=== PATIENT | female | born 1955 | race Caucasian/White ===

== ENCOUNTER 2018-07-19 03:16 | Emergency (ER) | payer SELFPAY ==
[~2018-07-19] VITALS: Ht 160 cm; Wt 50.0 kg
[2018-07-19] MEDS ORDERED: MORPHINE SULFATE 4 MG/ML CPJ (NOT FOR IM USE) IV STA (03:41)
[2018-07-19] MEDS ORDERED: ONDANSETRON HCL 4MG/2ML INJ IV STA (03:41)
[2018-07-19 04:44] LABS: BASOPHILS % 0.4 % (0.0-2.0); EOSINOPHILS % 1.4 % (0.0-5.0); HEMATOCRIT. 39.7 % (36.0-48.0); HEMOGLOBIN. 13.1 g/dL (12.0-16.0); LYMPHOCYTES % 8.2 % (20.0-50.0); MEAN CORPUSCULAR HEMOGLOBIN 26.7 pg (28.0-32.0); MEAN CORPUSCULAR VOLUME 81.2 fL (81.0-99.0); MEAN PLATELET VOLUME 8.9 fl (7.4-10.4); MONOCYTES % 3.9 % (2.0-8.0); NEUTROPHILS % 86.1 % (40.0-76.0); PLATELET 289 x1000/uL (130-400); RED BLOOD CELL COUNT 4.89 mill/uL (4.2-5.4); RED CELL DISTRIBUTION WIDTH 16.9 % (11.6-14.6)
[2018-07-19 04:53] LABS: CHLORIDE 100 mEq/L (98-107)
[2018-07-19] MEDS ORDERED: IOHEXOL-300 100 ML BOTTLE ONE (06:43)
[2018-07-19] MEDS ORDERED: SODIUM CHLORIDE 0.9% 1,000 ML IV ONE (07:15)
[2018-07-19 12:30] VITALS: BP 130/61
== END 2018-07-19 13:00 | disposition home or self-care (01) ==
LOC: ER 03:16
DX: R10.31 Right lower quadrant pain (principal); N17.9 Acute kidney failure, unspecified; M19.90 Unspecified osteoarthritis, unspecified site; Z93.3 Colostomy status; Z85.038 Personal history of other malignant neoplasm of large intestine
CPT/HCPCS: 36415; 74177; 80053; 83690; 85025; 96374; 96375; 99284; J2270; J2405; Q9967

== ENCOUNTER 2018-08-16 06:30 | Inpatient (IN) | payer SELFPAY ==
[~2018-08-16] VITALS: Ht 157.5 cm; Wt 38.6 kg
[2018-08-16] MEDS ORDERED: ONDANSETRON HCL 4MG/2ML INJ IV STA (08:01)
[2018-08-16] MEDS ORDERED: MORPHINE SULFATE 4 MG/ML CPJ (NOT FOR IM USE) IV STA (08:01)
[2018-08-16 08:12] LABS: CHLORIDE 65 mEq/L (98-107); HEMATOCRIT. 40.1 % (36.0-48.0); HEMOGLOBIN. 13.4 g/dL (12.0-16.0); MEAN CORPUSCULAR HEMOGLOBIN 25.4 pg (28.0-32.0); MEAN PLATELET VOLUME 8.2 fl (7.4-10.4); PLATELET 342 x1000/uL (130-400); RED BLOOD CELL COUNT 5.28 mill/uL (4.2-5.4)
[2018-08-16 08:15] LABS: PROTHROMBIN TIME 9.9 sec (9.1-11.1)
[2018-08-16 08:31] LABS: PLATELET ESTIMATE NORMAL
[2018-08-16] MEDS ORDERED: SODIUM CHLORIDE 0.9% 1,000 ML IV ONE (08:57)
[2018-08-16] MEDS ORDERED: KETOROLAC 30MG/ML VIAL IV ONE (09:30)
[2018-08-16] MEDS ORDERED: POTASSIUM CHLORIDE 20MEQ TABLET SR PO ONE (09:30)
[2018-08-16] MEDS ORDERED: DIPHENHYDRAMINE 50MG/ML VIAL IV PRN (15:30)
[2018-08-16] MEDS: DEXT 5%/0.9% NACL KCL 20MEQ/L 1,000 ML IV SCH (16:57)
[2018-08-16] MEDS ORDERED: HYDROMORPHONE HCL/PF 2MG/ML CPJ IV PRN (17:15)
[2018-08-16] MEDS: HYDROMORPHONE HCL/PF 2MG/ML CPJ IV PRN (18:32)
[2018-08-16] MEDS: ONDANSETRON HCL 4MG/2ML INJ IV PRN (20:10)
[2018-08-16 20:27] VITALS: BP 117/83
[2018-08-16] MEDS: LORAZEPAM 2MG/ML CPJ IV PRN (20:52)
[2018-08-16 22:00] VITALS: BP 93/60
[2018-08-16 22:13] VITALS: BP 117/85
[2018-08-17] VITALS (12 sets, daily range): BP systolic 94–130; BP diastolic 50–94
[2018-08-17] MEDS: ONDANSETRON HCL 4MG/2ML INJ IV PRN (00:57)
[2018-08-17] MEDS: HYDROMORPHONE HCL/PF 2MG/ML CPJ IV PRN ×3 (00:58→23:32)
[2018-08-17] MEDS: DEXT 5%/0.9% NACL KCL 20MEQ/L 1,000 ML IV SCH ×2 (02:25→20:55)
[2018-08-17] MEDS: PANTOPRAZOLE SODIUM 40 MG/VIAL IV SCH (08:42)
[2018-08-17 10:35] LABS: HEMATOCRIT. 39.5 % (36.0-48.0); HEMOGLOBIN. 12.6 g/dL (12.0-16.0); MEAN CORPUSCULAR HEMOGLOBIN 25.3 pg (28.0-32.0); MEAN CORPUSCULAR VOLUME 79.3 fL (81.0-99.0); MEAN PLATELET VOLUME 8.3 fl (7.4-10.4); PLATELET 266 x1000/uL (130-400); RED BLOOD CELL COUNT 4.98 mill/uL (4.2-5.4); RED CELL DISTRIBUTION WIDTH 16.2 % (11.6-14.6)
[2018-08-17] MEDS ORDERED: POTASSIUM CHLORIDE INJ 40 MEQ in DEXT 5% WATER 250 ML IV NR (13:00)
[2018-08-17] MEDS ORDERED: DIATR MEGLU/DIATRIZOATE SOLN 30ML PO SCH (13:30)
[2018-08-17 13:57] LABS: PHOSPHORUS 3.8 mg/dL (2.5-4.9)
[2018-08-17 17:40] LABS: PHOSPHORUS 3.7 mg/dL (2.5-4.9)
[2018-08-18] VITALS (26 sets, daily range): BP systolic 82–142; BP diastolic 53–91
[2018-08-18] MEDS: DEXT 5%/0.9% NACL KCL 20MEQ/L 1,000 ML IV SCH (04:36)
[2018-08-18 07:28] LABS: HEMATOCRIT. 34.6 % (36.0-48.0); MEAN CORPUSCULAR HEMOGLOBIN 25.1 pg (28.0-32.0); MEAN CORPUSCULAR VOLUME 78.8 fL (81.0-99.0); MEAN PLATELET VOLUME 8.7 fl (7.4-10.4); PLATELET 235 x1000/uL (130-400); RED BLOOD CELL COUNT 4.39 mill/uL (4.2-5.4); RED CELL DISTRIBUTION WIDTH 16.2 % (11.6-14.6)
[2018-08-18] MEDS ORDERED: ONDANSETRON HCL 4MG/2ML INJ IV PRN ×2 (07:45→11:15)
[2018-08-18] MEDS ORDERED: ACETAMINOPHEN 650MG SUPP PR PRN (07:45)
[2018-08-18] MEDS ORDERED: LEVOFLOXACIN 500MG PREMIX 100 ML IV SCH (07:45)
[2018-08-18] MEDS ORDERED: FENTANYL CITRATE/PF 50MCG/ML 2ML VIAL ONE ×2 (07:47→08:18)
[2018-08-18] MEDS ORDERED: NEOSTIGMINE METHYLSULFATE 1MG/ML 10 ML VIAL ONE (07:48)
[2018-08-18] MEDS ORDERED: GLYCOPYRROLATE 0.2 MG/ML 2ML VIAL ONE (07:48)
[2018-08-18] MEDS ORDERED: ROCURONIUM BROMIDE 10MG/ML VIAL 5ML IV ONE (07:48)
[2018-08-18] MEDS ORDERED: MIDAZOLAM HCL 2 MG/2 ML VIAL ONE (07:48)
[2018-08-18] MEDS ORDERED: PROPOFOL 200MG/20ML VIAL IV ONE ×2 (07:48→10:55)
[2018-08-18] MEDS ORDERED: LIDOCAINE HCL/PF 1% 10 MG/ML 5ML VIAL ONE (07:49)
[2018-08-18] MEDS ORDERED: CEFAZOLIN SODIUM 1000MG/VIAL ONE (07:49)
[2018-08-18] MEDS ORDERED: SODIUM CHLORIDE 0.9% 10ML VIAL ONE (07:50)
[2018-08-18] MEDS ORDERED: METOCLOPRAMIDE HCL 10MG/2ML VIAL ONE (07:50)
[2018-08-18] MEDS ORDERED: PHENYLEPHRINE HCL 10 MG/ML 1ML (IV VIAL) IV ONE (07:50)
[2018-08-18] MEDS ORDERED: EPHEDRINE SULFATE 50MG/ML VIAL ONE (07:50)
[2018-08-18] MEDS ORDERED: SUCCINYLCHOLINE CHLORIDE 200MG/10ML IV ONE ×2 (07:50→10:52)
[2018-08-18] MEDS ORDERED: ALBUMIN HUMAN 12.5G/250ML (5%) IV ONE ×2 (08:05→08:11)
[2018-08-18] MEDS ORDERED: NALOXONE HCL 0.4 MG/ML 1ML VIAL ONE (10:47)
[2018-08-18] MEDS ORDERED: NALOXONE HCL 0.4 MG/ML 1ML VIAL IV NR (10:59)
[2018-08-18] MEDS ORDERED: MEPERIDINE HCL/PF 25MG/ML CPJ IV PRN (11:15)
[2018-08-18 11:22] LABS: PLATELET ESTIMATE NORMAL
[2018-08-18] MEDS ORDERED: SODIUM CHLORIDE 0.9% 1,000 ML IV ONE (11:25)
[2018-08-18 11:59] LABS: BG BASE EXCESS -5.9 mmol/L (-2.0-2.0); BG CARBOXYHEMOGLOBIN 0.3 % (0.5-1.5); BG FRACTION INSPIRED OXYGEN 50; BG HCO3 ACT 22.8 mmol/L (22.0-26.0); BG METHEMOGLOBIN 0.4 % (0.0-1.5); BG OXYHEMOGLOBIN 95.3 % (94.0-97.0); BG PCO2 60.1 mmHg (35.0-45.0); BG PH 7.197 (7.350-7.450); BG PO2 104.7 mmHg (75.0-100.0); BG PRESSURE SUPPORT 10; BG SAMPLE SITE RIGHT BRACHIAL; BG TIDAL VOLUME(mL) 450 mL; BG TOTAL HEMOGLOBIN 12.1 g/dL (12.0-18.0); BG VENT MODE VENT - SIMV; BG VENT RATE 10 set
[2018-08-18] MEDS ORDERED: SODIUM BICARBONATE 8.4% 1 MEQ/ML 50ML SYR IV SCH (12:15)
[2018-08-18] MEDS ORDERED: SODIUM BICARBONATE 8.4% MEQ/ML 50ML VIAL IV ONE (12:16)
[2018-08-18 12:18] LABS: HEMOGLOBIN 11.8 g/dL (12.0-16.0); MEAN CORPUSCULAR HEMOGLOBIN 25.6 pg (28.0-32.0); MEAN CORPUSCULAR VOLUME 82.6 fL (81.0-99.0); PLATELET 230 x1000/uL (130-400); RED CELL DISTRIBUTION WIDTH 16.4 % (11.6-14.6)
[2018-08-18] MEDS: HYDROMORPHONE HCL/PF 2MG/ML CPJ IV PRN ×4 (12:21→13:35)
[2018-08-18 13:29] LABS: PLATELET ESTIMATE NORMAL
[2018-08-18] MEDS: PANTOPRAZOLE SODIUM 40 MG/VIAL IV SCH (13:34)
[2018-08-18] MEDS: PROPOFOL 10MG/ML 100ML 100 ML IV PRN ×2 (13:49→19:46)
[2018-08-18] MEDS: MORPHINE SULFATE 4 MG/ML CPJ (NOT FOR IM USE) IV PRN ×2 (16:10→21:21)
[2018-08-18 17:08] LABS: BG BASE EXCESS -1.3 mmol/L (-2.0-2.0); BG CARBOXYHEMOGLOBIN 0.3 % (0.5-1.5); BG HCO3 ACT 22.5 mmol/L (22.0-26.0); BG METHEMOGLOBIN 0.2 % (0.0-1.5); BG OXYHEMOGLOBIN 98.5 % (94.0-97.0); BG PCO2 34.5 mmHg (35.0-45.0); BG PH 7.433 (7.350-7.450); BG PO2 217.7 mmHg (75.0-100.0); BG SAMPLE SITE RIGHT BRACHIAL; BG TIDAL VOLUME(mL) 450 mL; BG TOTAL HEMOGLOBIN 10.7 g/dL (12.0-18.0); BG VENT MODE VENT - A/C; BG VENT RATE 14 set
[2018-08-18] MEDS: DEXT 5%/0.45% NACL KCL 20MEQ/L 1,000 ML IV SCH (18:43)
[2018-08-18] MEDS: FAMOTIDINE 20MG/2ML VIAL IV SCH (19:48)
[2018-08-19] VITALS (49 sets, daily range): BP systolic 85–153; BP diastolic 50–100
[2018-08-19] MEDS: IPRATROPIUM/ALBUTEROL 0.5-3(2.5)MG/3ML NEB HHN SCH ×4 (00:47→20:13)
[2018-08-19] MEDS: PROPOFOL 10MG/ML 100ML 100 ML IV PRN ×4 (03:02→22:47)
[2018-08-19 05:53] LABS: HEMATOCRIT. 33.2 % (36.0-48.0); HEMOGLOBIN. 10.4 g/dL (12.0-16.0); MEAN CORPUSCULAR HEMOGLOBIN 25.4 pg (28.0-32.0); MEAN CORPUSCULAR VOLUME 80.8 fL (81.0-99.0); MEAN PLATELET VOLUME 8.8 fl (7.4-10.4); PLATELET 193 x1000/uL (130-400); RED BLOOD CELL COUNT 4.11 mill/uL (4.2-5.4); RED CELL DISTRIBUTION WIDTH 16.3 % (11.6-14.6)
[2018-08-19] MEDS: DEXT 5%/0.45% NACL KCL 20MEQ/L 1,000 ML IV SCH (06:04)
[2018-08-19 06:07] LABS: PHOSPHORUS 3.1 mg/dL (2.5-4.9)
[2018-08-19] MEDS ORDERED: MAGNESIUM 2 G PREMIX 50 ML IV ONE (06:30)
[2018-08-19] MEDS: DEXT 5% WATER + KCL 20MEQ/L 1,000 ML IV SCH ×2 (07:28→19:35)
[2018-08-19] MEDS: LORAZEPAM 2MG/ML CPJ IV PRN (07:28)
[2018-08-19] MEDS ORDERED: LEVOFLOXACIN 250MG PREMIX 50 ML IV SCH (07:30)
[2018-08-19 08:34] LABS: BG BASE EXCESS -0.8 mmol/L (-2.0-2.0); BG CARBOXYHEMOGLOBIN 0.3 % (0.5-1.5); BG DEOXYHEMOGLOBIN 2.2 % (0.0-5.0); BG FRACTION INSPIRED OXYGEN 40; BG OXYGEN SATURATION 97.8 % (92.0-98.5); BG OXYHEMOGLOBIN 97.5 % (94.0-97.0); BG PCO2 34.5 mmHg (35.0-45.0); BG PH 7.442 (7.350-7.450); BG PO2 116.3 mmHg (75.0-100.0); BG SAMPLE SITE RIGHT BRACHIAL; BG TIDAL VOLUME(mL) 450 mL; BG TOTAL HEMOGLOBIN 9.7 g/dL (12.0-18.0); BG VENT MODE VENT - A/C; BG VENT RATE 14 set
[2018-08-19] MEDS: PANTOPRAZOLE SODIUM 40 MG/VIAL IV SCH (08:57)
[2018-08-19 11:35] LABS: PLATELET ESTIMATE NORMAL
[2018-08-19 12:38] LABS: BG BASE EXCESS 0.1 mmol/L (-2.0-2.0); BG CARBOXYHEMOGLOBIN 0.3 % (0.5-1.5); BG DEOXYHEMOGLOBIN 2.6 % (0.0-5.0); BG HCO3 ACT 24.2 mmol/L (22.0-26.0); BG METHEMOGLOBIN 0.1 % (0.0-1.5); BG OXYGEN SATURATION 97.4 % (92.0-98.5); BG PH 7.433 (7.350-7.450); BG PO2 105.9 mmHg (75.0-100.0); BG SAMPLE SITE RIGHT RADIAL; BG TIDAL VOLUME(mL) 450 mL; BG VENT MODE VENT - SIMV; BG VENT RATE 10 set
[2018-08-19] MEDS: HYDROMORPHONE HCL/PF 2MG/ML CPJ IV PRN (13:04)
[2018-08-19] MEDS: MORPHINE SULFATE 4 MG/ML CPJ (NOT FOR IM USE) IV PRN (18:08)
[2018-08-19] MEDS: FAMOTIDINE 20MG/2ML VIAL IV SCH (19:35)
[2018-08-20] VITALS (50 sets, daily range): BP systolic 118–167; BP diastolic 49–104
[2018-08-20] MEDS: IPRATROPIUM/ALBUTEROL 0.5-3(2.5)MG/3ML NEB HHN SCH ×4 (00:18→21:20)
[2018-08-20] MEDS: PROPOFOL 10MG/ML 100ML 100 ML IV PRN ×2 (05:11→10:03)
[2018-08-20 05:39] LABS: BASOPHILS % 0.5 % (0.0-2.0); EOSINOPHILS % 0.8 % (0.0-5.0); HEMATOCRIT. 36.1 % (36.0-48.0); HEMOGLOBIN. 11.1 g/dL (12.0-16.0); LYMPHOCYTES % 7.5 % (20.0-50.0); MEAN CORPUSCULAR HEMOGLOBIN 25.7 pg (28.0-32.0); MEAN CORPUSCULAR VOLUME 83.3 fL (81.0-99.0); MEAN PLATELET VOLUME 9.1 fl (7.4-10.4); MONOCYTES % 2.2 % (2.0-8.0); PLATELET 175 x1000/uL (130-400); RED BLOOD CELL COUNT 4.34 mill/uL (4.2-5.4); RED CELL DISTRIBUTION WIDTH 16.6 % (11.6-14.6)
[2018-08-20 06:45] LABS: PHOSPHORUS 2.8 mg/dL (2.5-4.9)
[2018-08-20] MEDS: PANTOPRAZOLE SODIUM 40 MG/VIAL IV SCH (08:58)
[2018-08-20] MEDS: LORAZEPAM 2MG/ML CPJ IV PRN ×3 (10:54→22:49)
[2018-08-20] MEDS: HYDROMORPHONE HCL/PF 2MG/ML CPJ IV PRN ×2 (11:32→18:06)
[2018-08-20] MEDS: DEXT 5% WATER + KCL 20MEQ/L 1,000 ML IV SCH ×2 (12:10→22:32)
[2018-08-20] MEDS: PIPERACILLIN/TAZ 2.25G PREMIX 50 ML IV SCH ×2 (14:46→20:46)
[2018-08-20 15:47] LABS: BG BASE EXCESS -1.9 mmol/L (-2.0-2.0); BG CARBOXYHEMOGLOBIN 0.3 % (0.5-1.5); BG DEOXYHEMOGLOBIN 1.9 % (0.0-5.0); BG FRACTION INSPIRED OXYGEN 40; BG HCO3 ACT 21.7 mmol/L (22.0-26.0); BG METHEMOGLOBIN 0.2 % (0.0-1.5); BG OXYGEN SATURATION 98.1 % (92.0-98.5); BG OXYHEMOGLOBIN 97.6 % (94.0-97.0); BG PCO2 33.5 mmHg (35.0-45.0); BG PO2 117.1 mmHg (75.0-100.0); BG PRESSURE SUPPORT 8; BG SAMPLE SITE RIGHT RADIAL; BG TOTAL HEMOGLOBIN 11.7 g/dL (12.0-18.0); BG VENT MODE VENT - CPAP
[2018-08-20] MEDS: VANCOMYCIN 750 MG PREMIX 150 ML IV SCH (15:58)
[2018-08-20 17:05] LABS: CLARITY URINE CLEAR (CLEAR); COLOR URINE YELLOW (YELLOW); KETONES URINE NEGATIVE (NEGATIVE); LEUKOCYTE ESTERASE URINE NEGATIVE (NEGATIVE); NITRITE URINE NEGATIVE (NEGATIVE); OCCULT BLOOD URINE NEGATIVE (NEGATIVE); PH URINE 5.5 (4.5-8.0); PROTEIN URINE 1+ (NEGATIVE); SPECIFIC GRAVITY URINE 1.019 (1.005-1.030); UROBILINOGEN URINE 0.2 E.U./dL (0.2-1.0)
[2018-08-21] VITALS (41 sets, daily range): BP systolic 77–168; BP diastolic 56–112
[2018-08-21] MEDS: IPRATROPIUM/ALBUTEROL 0.5-3(2.5)MG/3ML NEB HHN SCH ×4 (01:50→20:10)
[2018-08-21] MEDS: HYDROMORPHONE HCL/PF 2MG/ML CPJ IV PRN ×6 (02:12→18:58)
[2018-08-21] MEDS: PIPERACILLIN/TAZ 2.25G PREMIX 50 ML IV SCH ×4 (02:14→20:04)
[2018-08-21 05:58] LABS: HEMATOCRIT. 30.5 % (36.0-48.0); HEMOGLOBIN. 9.7 g/dL (12.0-16.0); MEAN CORPUSCULAR HEMOGLOBIN 25.4 pg (28.0-32.0); MEAN CORPUSCULAR VOLUME 79.3 fL (81.0-99.0); MEAN PLATELET VOLUME 8.8 fl (7.4-10.4); PLATELET 201 x1000/uL (130-400); RED BLOOD CELL COUNT 3.84 mill/uL (4.2-5.4); RED CELL DISTRIBUTION WIDTH 15.8 % (11.6-14.6)
[2018-08-21 06:08] LABS: PHOSPHORUS 3.2 mg/dL (2.5-4.9)
[2018-08-21] MEDS: VANCOMYCIN 750 MG PREMIX 150 ML IV SCH (10:19)
[2018-08-21] MEDS: DEXT 5%/0.45% NACL KCL 20MEQ/L 1,000 ML IV SCH (10:19)
[2018-08-21] MEDS: PANTOPRAZOLE SODIUM 40 MG/VIAL IV SCH (10:19)
[2018-08-21 10:22] LABS: PLATELET ESTIMATE NORMAL
[2018-08-21] MEDS: LORAZEPAM 2MG/ML CPJ IV PRN (14:35)
[2018-08-22] VITALS: BP 120/88
[2018-08-22] MEDS: HYDROMORPHONE HCL/PF 2MG/ML CPJ IV PRN ×5 (00:39→18:27)
[2018-08-22] MEDS: IPRATROPIUM/ALBUTEROL 0.5-3(2.5)MG/3ML NEB HHN SCH ×4 (01:19→20:52)
[2018-08-22] MEDS: PIPERACILLIN/TAZ 2.25G PREMIX 50 ML IV SCH ×4 (01:29→20:28)
[2018-08-22] MEDS: VANCOMYCIN 750 MG PREMIX 150 ML IV SCH ×2 (03:17→21:55)
[2018-08-22 04:00] VITALS: BP 112/77
[2018-08-22 06:28] LABS: HEMOGLOBIN. 9.8 g/dL (12.0-16.0); MEAN CORPUSCULAR HEMOGLOBIN 25.7 pg (28.0-32.0); MEAN CORPUSCULAR VOLUME 78.7 fL (81.0-99.0); MEAN PLATELET VOLUME 8.9 fl (7.4-10.4); PLATELET 193 x1000/uL (130-400); RED BLOOD CELL COUNT 3.81 mill/uL (4.2-5.4); RED CELL DISTRIBUTION WIDTH 15.5 % (11.6-14.6)
[2018-08-22 06:38] LABS: CHLORIDE 106 mEq/L (98-107)
[2018-08-22 06:48] LABS: PHOSPHORUS 2.6 mg/dL (2.5-4.9)
[2018-08-22 08:00] VITALS: BP 109/79
[2018-08-22 08:40] LABS: PLATELET ESTIMATE NORMAL
[2018-08-22] MEDS: PANTOPRAZOLE SODIUM 40 MG/VIAL IV SCH (08:44)
[2018-08-22] MEDS: DEXT 5%/0.45% NACL KCL 20MEQ/L 1,000 ML IV SCH (10:05)
[2018-08-22] MEDS ORDERED: MAGNESIUM 2 G PREMIX 50 ML IV NR (11:30)
[2018-08-22 12:00] VITALS: BP 131/94
[2018-08-22] MEDS: LORAZEPAM 2MG/ML CPJ IV PRN ×2 (12:37→17:03)
[2018-08-22 20:00] VITALS: BP 130/87
[2018-08-23] VITALS: BP 127/89
[2018-08-23] MEDS: IPRATROPIUM/ALBUTEROL 0.5-3(2.5)MG/3ML NEB HHN SCH ×3 (01:04→21:38)
[2018-08-23] MEDS: PIPERACILLIN/TAZ 2.25G PREMIX 50 ML IV SCH ×3 (02:50→16:07)
[2018-08-23 04:00] VITALS: BP 135/93
[2018-08-23] MEDS: HYDROMORPHONE HCL/PF 2MG/ML CPJ IV PRN ×4 (06:04→19:45)
[2018-08-23 08:00] VITALS: BP 114/77
[2018-08-23] MEDS: PANTOPRAZOLE SODIUM 40 MG/VIAL IV SCH (08:36)
[2018-08-23] MEDS: DEXT 5%/0.45% NACL KCL 20MEQ/L 1,000 ML IV SCH (10:00)
[2018-08-23 11:16] LABS: PHOSPHORUS 2.2 mg/dL (2.5-4.9)
[2018-08-23 12:00] VITALS: BP 112/67
[2018-08-23] MEDS: VANCOMYCIN 750 MG PREMIX 150 ML IV SCH (16:07)
[2018-08-23 16:11] VITALS: BP 119/73
[2018-08-23] MEDS ORDERED: POTASSIUM PHOS,M-BASIC-D-BASIC 20 MMOL in DEXT 5% WATER 243.3333 ML IV SCH (16:15)
[2018-08-23] MEDS: LORAZEPAM 2MG/ML CPJ IV PRN (17:39)
[2018-08-23 20:00] VITALS: BP 131/89
[2018-08-23] MEDS: CEFAZOLIN 1000MG PREMIX 50 ML IV SCH (20:51)
[2018-08-24] VITALS (7 sets, daily range): BP systolic 102–140; BP diastolic 60–89
[2018-08-24] MEDS: HYDROMORPHONE HCL/PF 2MG/ML CPJ IV PRN ×5 (00:03→22:28)
[2018-08-24] MEDS: LORAZEPAM 2MG/ML CPJ IV PRN (00:15)
[2018-08-24] MEDS: DEXT 5%/0.45% NACL KCL 20MEQ/L 1,000 ML IV SCH ×2 (01:32→20:39)
[2018-08-24] MEDS: IPRATROPIUM/ALBUTEROL 0.5-3(2.5)MG/3ML NEB HHN SCH ×4 (02:10→11:50)
[2018-08-24] MEDS: CEFAZOLIN 1000MG PREMIX 50 ML IV SCH ×3 (04:07→20:39)
[2018-08-24] MEDS: VANCOMYCIN 750 MG PREMIX 150 ML IV SCH (08:24)
[2018-08-24] MEDS: PANTOPRAZOLE SODIUM 40 MG/VIAL IV SCH (08:24)
[2018-08-24 15:17] LABS: CHLORIDE 105 mEq/L (98-107)
[2018-08-24 15:31] LABS: BASOPHILS % 0.6 % (0.0-2.0); EOSINOPHILS % 1.1 % (0.0-5.0); HEMOGLOBIN. 9.5 g/dL (12.0-16.0); LYMPHOCYTES % 9.6 % (20.0-50.0); MEAN CORPUSCULAR HEMOGLOBIN 25.4 pg (28.0-32.0); MEAN CORPUSCULAR VOLUME 77.8 fL (81.0-99.0); MEAN PLATELET VOLUME 8.2 fl (7.4-10.4); MONOCYTES % 4.1 % (2.0-8.0); NEUTROPHILS % 84.6 % (40.0-76.0); PLATELET 259 x1000/uL (130-400); RED BLOOD CELL COUNT 3.73 mill/uL (4.2-5.4); RED CELL DISTRIBUTION WIDTH 15.5 % (11.6-14.6)
[2018-08-25] VITALS: BP 118/66
[2018-08-25] MEDS: IPRATROPIUM/ALBUTEROL 0.5-3(2.5)MG/3ML NEB HHN SCH ×4 (02:05→22:01)
[2018-08-25] MEDS: VANCOMYCIN 750 MG PREMIX 150 ML IV SCH ×2 (02:56→20:37)
[2018-08-25] MEDS: HYDROMORPHONE HCL/PF 2MG/ML CPJ IV PRN ×3 (02:56→18:09)
[2018-08-25] MEDS: CEFAZOLIN 1000MG PREMIX 50 ML IV SCH ×3 (03:35→20:37)
[2018-08-25 04:00] VITALS: BP 118/78
[2018-08-25] MEDS: LORAZEPAM 2MG/ML CPJ IV PRN (05:09)
[2018-08-25 07:14] LABS: CHLORIDE 102 mEq/L (98-107)
[2018-08-25 07:18] LABS: BASOPHILS % 0.7 % (0.0-2.0); EOSINOPHILS % 0.9 % (0.0-5.0); HEMATOCRIT. 31.3 % (36.0-48.0); HEMOGLOBIN. 10.1 g/dL (12.0-16.0); LYMPHOCYTES % 9.9 % (20.0-50.0); MEAN CORPUSCULAR HEMOGLOBIN 25.2 pg (28.0-32.0); MEAN CORPUSCULAR VOLUME 77.9 fL (81.0-99.0); MEAN PLATELET VOLUME 8.3 fl (7.4-10.4); NEUTROPHILS % 84.5 % (40.0-76.0); PLATELET 239 x1000/uL (130-400); RED BLOOD CELL COUNT 4.02 mill/uL (4.2-5.4); RED CELL DISTRIBUTION WIDTH 15.5 % (11.6-14.6)
[2018-08-25 08:00] VITALS: BP 137/89
[2018-08-25] MEDS: PANTOPRAZOLE SODIUM 40 MG/VIAL IV SCH (08:24)
[2018-08-25 12:00] VITALS: BP 133/85
[2018-08-25] MEDS ORDERED: LORAZEPAM 2MG/ML CPJ IV PRN (12:00)
[2018-08-25] MEDS: DEXT 5%/0.45% NACL KCL 20MEQ/L 1,000 ML IV SCH (12:20)
[2018-08-25 16:00] VITALS: BP 121/84
[2018-08-25 20:00] VITALS: BP 118/82
[2018-08-26] VITALS (7 sets, daily range): BP systolic 100–156; BP diastolic 68–100
[2018-08-26] MEDS: HYDROMORPHONE HCL/PF 2MG/ML CPJ IV PRN ×5 (01:32→22:18)
[2018-08-26] MEDS: IPRATROPIUM/ALBUTEROL 0.5-3(2.5)MG/3ML NEB HHN SCH ×2 (01:48→21:16)
[2018-08-26] MEDS: DEXT 5%/0.45% NACL KCL 20MEQ/L 1,000 ML IV SCH (06:09)
[2018-08-26] MEDS: CEFAZOLIN 1000MG PREMIX 50 ML IV SCH ×3 (06:09→22:02)
[2018-08-26 09:58] LABS: HEMATOCRIT. 30.8 % (36.0-48.0); HEMOGLOBIN. 10.1 g/dL (12.0-16.0); MEAN CORPUSCULAR HEMOGLOBIN 25.3 pg (28.0-32.0); MEAN PLATELET VOLUME 8.4 fl (7.4-10.4); PLATELET 251 x1000/uL (130-400); RED CELL DISTRIBUTION WIDTH 15.8 % (11.6-14.6)
[2018-08-26 10:13] LABS: CHLORIDE 102 mEq/L (98-107)
[2018-08-26] MEDS: PANTOPRAZOLE SODIUM 40 MG/VIAL IV SCH (11:18)
[2018-08-26] MEDS ORDERED: MAGNESIUM 2 G PREMIX 50 ML IV NR (14:00)
[2018-08-26] MEDS: DEXT 5%/0.9% NACL KCL 20MEQ/L 1,000 ML IV SCH (14:49)
[2018-08-26] MEDS: VANCOMYCIN 750 MG PREMIX 150 ML IV SCH (15:28)
[2018-08-26] MEDS: ONDANSETRON HCL 4MG/2ML INJ IV PRN (22:22)
[2018-08-27] VITALS: BP 114/76
[2018-08-27] MEDS: IPRATROPIUM/ALBUTEROL 0.5-3(2.5)MG/3ML NEB HHN SCH ×4 (01:35→21:06)
[2018-08-27] MEDS: HYDROMORPHONE HCL/PF 2MG/ML CPJ IV PRN ×4 (03:45→20:58)
[2018-08-27 04:00] VITALS: BP 107/61
[2018-08-27] MEDS: CEFAZOLIN 1000MG PREMIX 50 ML IV SCH ×3 (05:00→21:00)
[2018-08-27 08:00] VITALS: BP 131/83
[2018-08-27 08:14] LABS: HEMATOCRIT. 28.5 % (36.0-48.0); HEMOGLOBIN. 9.3 g/dL (12.0-16.0); MEAN CORPUSCULAR HEMOGLOBIN 25.5 pg (28.0-32.0); MEAN CORPUSCULAR VOLUME 78.5 fL (81.0-99.0); MEAN PLATELET VOLUME 8.3 fl (7.4-10.4); PLATELET 229 x1000/uL (130-400); RED BLOOD CELL COUNT 3.64 mill/uL (4.2-5.4); RED CELL DISTRIBUTION WIDTH 15.4 % (11.6-14.6)
[2018-08-27 08:19] LABS: CHLORIDE 107 mEq/L (98-107)
[2018-08-27 09:15] LABS: PLATELET ESTIMATE NORMAL
[2018-08-27] MEDS: PANTOPRAZOLE SODIUM 40 MG/VIAL IV SCH (09:37)
[2018-08-27] MEDS: DEXT 5%/0.9% NACL KCL 20MEQ/L 1,000 ML IV SCH ×2 (09:41→23:20)
[2018-08-27] MEDS: VANCOMYCIN 750 MG PREMIX 150 ML IV SCH (09:42)
[2018-08-27 12:00] VITALS: BP 136/76
[2018-08-27 12:24] LABS: PLATELET ESTIMATE NORMAL
[2018-08-27 16:00] VITALS: BP 128/80
[2018-08-27 20:00] VITALS: BP 137/86
[2018-08-28] VITALS: BP 167/26
[2018-08-28] MEDS: IPRATROPIUM/ALBUTEROL 0.5-3(2.5)MG/3ML NEB HHN SCH ×3 (01:02→14:33)
[2018-08-28] MEDS: HYDROMORPHONE HCL/PF 2MG/ML CPJ IV PRN ×3 (02:07→11:57)
[2018-08-28 04:00] VITALS: BP 125/83
[2018-08-28] MEDS: CEFAZOLIN 1000MG PREMIX 50 ML IV SCH ×2 (05:16→11:58)
[2018-08-28 08:00] VITALS: BP 118/76
[2018-08-28] MEDS: PANTOPRAZOLE SODIUM 40 MG/VIAL IV SCH (09:24)
[2018-08-28 12:00] VITALS: BP 144/91
[2018-08-28 14:21] VITALS: BP 143/98
== END 2018-08-28 15:00 | disposition home or self-care (01) | DRG 710 ==
LOC: ER 06:30 → 3WST 09:25 → ENRESERV 19:53 → MICUSO 08-18 12:40 → 8WST 08-21 17:37
PROVIDERS: ADMIT Internal Medicine; ATTEND Internal Medicine
PROC: 0DB90ZX Excision of Duodenum, Open Approach, Diagnostic (ICD-10-PCS; principal; 2018-08-18)
PROC: 0D160ZA Bypass Stomach to Jejunum, Open Approach (ICD-10-PCS; 2018-08-18)
PROC: 0DN80ZZ Release Small Intestine, Open Approach (ICD-10-PCS; 2018-08-18)
DX: A41.51 Sepsis due to Escherichia coli [E. coli] (principal); J96.00 Acute respiratory failure, unspecified whether with hypoxia or hypercapnia; J69.0 Pneumonitis due to inhalation of food and vomit; K55.1 Chronic vascular disorders of intestine; E43 Unspecified severe protein-calorie malnutrition; K31.5 Obstruction of duodenum; R64 Cachexia; E87.4 Mixed disorder of acid-base balance; N17.9 Acute kidney failure, unspecified; E86.0 Dehydration; E83.42 Hypomagnesemia; E87.1 Hypo-osmolality and hyponatremia; E87.6 Hypokalemia; G89.29 Other chronic pain; K66.0 Peritoneal adhesions (postprocedural) (postinfection); N13.30 Unspecified hydronephrosis; C17.0 Malignant neoplasm of duodenum; Z51.5 Encounter for palliative care; F17.210 Nicotine dependence, cigarettes, uncomplicated; N18.9 Chronic kidney disease, unspecified; N28.1 Cyst of kidney, acquired; Z85.048 Personal history of other malignant neoplasm of rectum, rectosigmoid junction, and anus; Z90.49 Acquired absence of other specified parts of digestive tract; Z92.21 Personal history of antineoplastic chemotherapy; Z92.3 Personal history of irradiation; Z93.3 Colostomy status; Z98.84 Bariatric surgery status; Z68.1 Body mass index [BMI] 19.9 or less, adult
CPT/HCPCS: 36415; 36600; 71045; 74018; 74176; 80048; 80202; 82375; 82805; 82962; 83735; 84100; 84132; 84478; 85027; 86850; 86900; 87070; 87077; 87186; 88305; 92610; 93005; 93970; 94640; 96374; 96375; 97116; 97162; 97166; 97530; 97535; 99285; A6261; C1893; C9113; J0330; J0690; J1170; J1200; J1885; J1956; J2060; J2250; J2270; J2310; J2370; J2405; J2543; J2704; J2710; J2765; J3010; J3370; J3475; J3480; J3490; J7030; J7040; J7050; J7060; J7620; P9041; Q9963

== ENCOUNTER 2018-08-30 13:09 | Inpatient (IN) | payer SELFPAY ==
[~2018-08-30] VITALS: Ht 152.4 cm; Wt 45.4 kg
[2018-08-30] MEDS ORDERED: SODIUM CHLORIDE 0.9% 1,000 ML IV ONE (17:29)
[2018-08-30] MEDS ORDERED: ONDANSETRON HCL 4MG/2ML INJ IV STA (17:29)
[2018-08-30] MEDS ORDERED: MORPHINE SULFATE 4 MG/ML CPJ (NOT FOR IM USE) IV STA (17:29)
[2018-08-30 19:26] LABS: BASOPHILS % 0.8 % (0.0-2.0); EOSINOPHILS % 0.7 % (0.0-5.0); HEMATOCRIT. 26.9 % (36.0-48.0); HEMOGLOBIN. 8.9 g/dL (12.0-16.0); LYMPHOCYTES % 12.1 % (20.0-50.0); MEAN CORPUSCULAR HEMOGLOBIN 25.5 pg (28.0-32.0); MEAN CORPUSCULAR VOLUME 77.6 fL (81.0-99.0); MONOCYTES % 4.7 % (2.0-8.0); NEUTROPHILS % 81.7 % (40.0-76.0); PLATELET 348 x1000/uL (130-400); RED BLOOD CELL COUNT 3.47 mill/uL (4.2-5.4); RED CELL DISTRIBUTION WIDTH 16.6 % (11.6-14.6)
[2018-08-30 19:27] LABS: CHLORIDE 102 mEq/L (98-107)
[2018-08-30 19:28] LABS: PARTIAL THROMBOPLASTIN TIME 26.7 sec (23.4-31.0); PROTHROMBIN TIME 10.4 sec (9.6-11.0)
[2018-08-30 21:25] LABS: CLARITY URINE CLOUDY (CLEAR); COLOR URINE YELLOW (YELLOW); KETONES URINE TRACE (NEGATIVE); LEUKOCYTE ESTERASE URINE 3+ (NEGATIVE); NITRITE URINE NEGATIVE (NEGATIVE); OCCULT BLOOD URINE 1+ (NEGATIVE); PH URINE 5.5 (4.5-8.0); PROTEIN URINE 1+ (NEGATIVE); SPECIFIC GRAVITY URINE 1.017 (1.005-1.030); UROBILINOGEN URINE 0.2 E.U./dL (0.2-1.0)
[2018-08-30] MEDS ORDERED: CEFTRIAXONE 1 G PREMIX 50 ML IV ONE (22:00)
[2018-08-30] MEDS ORDERED: SODIUM CHLORIDE 0.9% 1,000 ML IV SCH (22:44)
[2018-08-30] MEDS ORDERED: KETOROLAC 15MG/ML VIAL IV PRN (22:45)
[2018-08-30] MEDS ORDERED: ACETAMINOPHEN 325MG TABLET PO PRN (22:45)
[2018-08-30] MEDS ORDERED: NA PHOS,M-B/NA PHOS,DI-BA ENEMA 118ML PR PRN (22:45)
[2018-08-30] MEDS ORDERED: DOCUSATE SODIUM 100MG CAPSULE PO PRN (22:45)
[2018-08-30] MEDS ORDERED: ONDANSETRON HCL 4MG/2ML INJ IV PRN (22:45)
[2018-08-30] MEDS ORDERED: GUAIFENESIN 200MG/10ML SUGAR FREE UDC PO PRN (22:45)
[2018-08-30] MEDS ORDERED: PIPERACILLIN/TAZ 3.375G PREMIX 50 ML IV SCH (22:45)
[2018-08-30] MEDS ORDERED: MAGNESIUM/ALUMINUM HYDROXIDE/SIMETHICONE 30ML UDC PO PRN (22:45)
[2018-08-30] MEDS ORDERED: IPRATROPIUM/ALBUTEROL 0.5-3(2.5)MG/3ML NEB INH PRN (22:45)
[2018-08-30] MEDS ORDERED: ZOLPIDEM TARTRATE 5MG TABLET PO PRN (22:45)
[2018-08-30] MEDS ORDERED: CLONIDINE 0.1MG TABLET PO PRN (22:45)
[2018-08-31 00:05] LABS: TOTAL IRON BINDING CAPACITY 282 ug/dL (250-450)
[2018-08-31 00:36] LABS: FOLIC ACID (FOLATE) SERUM 16.5 ng/mL (>5.38)
[2018-08-31] MEDS ORDERED: ZOLPIDEM TARTRATE 5MG TABLET PO PRN ×2 (03:30→09:30)
[2018-08-31] MEDS ORDERED: PIPERACILLIN/TAZ 2.25G PREMIX 50 ML IV NR (03:30)
[2018-08-31 08:00] VITALS: BP 136/85
[2018-08-31] MEDS ORDERED: ASCORBIC ACID 500 MG TABLET PO SCH (09:00)
[2018-08-31] MEDS ORDERED: ZINC SULFATE 220 MG ( 50 ) CAPSULE PO SCH (09:00)
[2018-08-31] MEDS ORDERED: ENOXAPARIN 40MG/0.4ML SYR SUBCUT SCH (09:00)
[2018-08-31 12:47] VITALS: BP 136/85
[2018-08-31] MEDS: TRAMADOL 50MG TABLET PO PRN ×3 (13:19→23:34)
[2018-08-31] MEDS: SODIUM CHLORIDE 0.9% 1,000 ML IV SCH (17:19)
[2018-08-31 20:00] VITALS: BP 129/83
[2018-08-31] MEDS: ASCORBIC ACID 500 MG TABLET PO SCH (20:58)
[2018-08-31] MEDS: PIPERACILLIN/TAZ 3.375G PREMIX 50 ML IV SCH (20:58)
[2018-08-31] MEDS: ENOXAPARIN 40MG/0.4ML SYR SUBCUT SCH (20:59)
[2018-08-31] MEDS ORDERED: VANCOMYCIN 1 G PREMIX 200 ML IV NR (22:00)
[2018-09-01] VITALS: BP 119/70
[2018-09-01] MEDS: PIPERACILLIN/TAZ 3.375G PREMIX 50 ML IV SCH ×2 (03:22→17:08)
[2018-09-01] MEDS: TRAMADOL 50MG TABLET PO PRN ×3 (03:23→17:09)
[2018-09-01] MEDS: SODIUM CHLORIDE 0.9% 1,000 ML IV SCH (03:25)
[2018-09-01 04:00] VITALS: BP 101/57
[2018-09-01] MEDS ORDERED: ONDANSETRON HCL 4MG/2ML INJ IV PRN (04:45)
[2018-09-01 08:00] VITALS: BP 161/70
[2018-09-01] MEDS: ASCORBIC ACID 500 MG TABLET PO SCH ×2 (09:02→21:55)
[2018-09-01] MEDS: ZINC SULFATE 220 MG ( 50 ) CAPSULE PO SCH (09:02)
[2018-09-01 12:13] VITALS: BP 112/65
[2018-09-01 15:42] VITALS: BP 115/72
[2018-09-01 20:00] VITALS: BP 109/74
[2018-09-01] MEDS: ENOXAPARIN 40MG/0.4ML SYR SUBCUT SCH (21:55)
[2018-09-02] VITALS: BP 159/87
[2018-09-02] MEDS: SODIUM CHLORIDE 0.9% 1,000 ML IV SCH ×2 (01:28→23:19)
[2018-09-02] MEDS: PIPERACILLIN/TAZ 3.375G PREMIX 50 ML IV SCH ×3 (01:29→18:06)
[2018-09-02 04:00] VITALS: BP 109/70
[2018-09-02 08:00] VITALS: BP 117/82
[2018-09-02] MEDS: ASCORBIC ACID 500 MG TABLET PO SCH ×2 (09:20→20:41)
[2018-09-02] MEDS: ZINC SULFATE 220 MG ( 50 ) CAPSULE PO SCH (09:20)
[2018-09-02 12:00] VITALS: BP 120/89
[2018-09-02] MEDS: TRAMADOL 50MG TABLET PO PRN ×2 (12:00→19:38)
[2018-09-02] MEDS ORDERED: VANCOMYCIN 750 MG PREMIX 150 ML IV SCH (13:00)
[2018-09-02 15:49] VITALS: BP 136/86
[2018-09-02 20:00] VITALS: BP 137/78
[2018-09-02] MEDS: ENOXAPARIN 40MG/0.4ML SYR SUBCUT SCH (20:42)
[2018-09-03] VITALS: BP 109/69
[2018-09-03] MEDS: PIPERACILLIN/TAZ 3.375G PREMIX 50 ML IV SCH ×2 (00:21→08:32)
[2018-09-03] MEDS: TRAMADOL 50MG TABLET PO PRN (01:48)
[2018-09-03 04:00] VITALS: BP 109/69
[2018-09-03] MEDS ORDERED: VANCOMYCIN 750 MG PREMIX 150 ML IV SCH (07:00)
[2018-09-03 07:24] LABS: CHLORIDE 108 mEq/L (98-107)
[2018-09-03 08:00] VITALS: BP 108/67
[2018-09-03] MEDS: ASCORBIC ACID 500 MG TABLET PO SCH (08:32)
[2018-09-03] MEDS: ZINC SULFATE 220 MG ( 50 ) CAPSULE PO SCH (08:32)
[2018-09-03 12:00] VITALS: BP 135/88
[2018-09-03 13:12] VITALS: BP 121/81
== END 2018-09-03 13:40 | disposition home or self-care (01) | DRG 463 ==
LOC: ER 13:09 → 6EST 22:38 → ENRESERV 08-31 07:11 → ER 08-31 09:28
PROVIDERS: ADMIT Internal Medicine; ATTEND Internal Medicine
DX: N30.00 Acute cystitis without hematuria (principal); N17.0 Acute kidney failure with tubular necrosis; E44.0 Moderate protein-calorie malnutrition; D63.8 Anemia in other chronic diseases classified elsewhere; Z85.038 Personal history of other malignant neoplasm of large intestine; Z93.3 Colostomy status; Z68.1 Body mass index [BMI] 19.9 or less, adult
CPT/HCPCS: 36415; 80048; 80202; 82607; 82746; 83036; 83540; 83550; 96374; 96375; 97116; 97162; 97166; 99285; J0696; J1650; J1885; J2270; J2405; J2543; J3370; J7030

== ENCOUNTER 2018-10-27 23:30 | Inpatient (IN) | payer OTHER, MEDICAID ==
[~2018-10-27] VITALS: Ht 160 cm; Wt 34.5 kg
[2018-10-28] VITALS (8 sets, daily range): BP systolic 111–155; BP diastolic 67–89
[2018-10-28] MEDS ORDERED: SODIUM CHLORIDE 0.9% 1,000 ML IV ONE (00:05)
[2018-10-28 00:43] LABS: HEMATOCRIT. 32.8 % (36.0-48.0); HEMOGLOBIN. 10.7 g/dL (12.0-16.0); MEAN PLATELET VOLUME 8.1 fl (7.4-10.4); PLATELET 347 x1000/uL (130-400); RED BLOOD CELL COUNT 4.11 mill/uL (4.2-5.4); RED CELL DISTRIBUTION WIDTH 18.4 % (11.6-14.6)
[2018-10-28 00:47] LABS: CHLORIDE 102 mEq/L (98-107)
[2018-10-28] MEDS ORDERED: MORPHINE SULFATE 4 MG/ML CPJ (NOT FOR IM USE) IV ONE (01:00)
[2018-10-28 01:34] LABS: PLATELET ESTIMATE NORMAL
[2018-10-28] MEDS ORDERED: SODIUM CHLORIDE 0.9% 1,000 ML IV NR (01:45)
[2018-10-28] MEDS ORDERED: IOHEXOL-300 100 ML BOTTLE ONE (02:31)
[2018-10-28 03:22] LABS: CLARITY URINE CLOUDY (CLEAR); COLOR URINE YELLOW (YELLOW); KETONES URINE NEGATIVE (NEGATIVE); LEUKOCYTE ESTERASE URINE TRACE (NEGATIVE); NITRITE URINE NEGATIVE (NEGATIVE); OCCULT BLOOD URINE NEGATIVE (NEGATIVE); PH URINE 5.5 (4.5-8.0); PROTEIN URINE 1+ (NEGATIVE); SPECIFIC GRAVITY URINE 1.015 (1.005-1.030); UROBILINOGEN URINE 0.2 E.U./dL (0.2-1.0)
[2018-10-28] MEDS ORDERED: PIPERACILLIN/TAZOBACTAM 3.375GM/50ML PREMIX IV ONE (05:30)
[2018-10-28] MEDS ORDERED: PIPERACILLIN/TAZ 3.375G PREMIX 50 ML IV NR (05:45)
[2018-10-28] MEDS ORDERED: DIPHENHYDRAMINE 50MG/ML VIAL IV PRN (10:30)
[2018-10-28] MEDS ORDERED: LORAZEPAM 2MG/ML CPJ IV PRN (10:30)
[2018-10-28] MEDS ORDERED: PIPERACILLIN/TAZ 3.375G PREMIX 50 ML IV SCH (10:30)
[2018-10-28] MEDS ORDERED: IPRATROPIUM/ALBUTEROL 0.5-3(2.5)MG/3ML NEB INH PRN (10:30)
[2018-10-28 11:19] LABS: PHOSPHORUS 3.1 mg/dL (2.5-4.9)
[2018-10-28] MEDS: FAMOTIDINE 20MG/2ML VIAL IV SCH (12:51)
[2018-10-28] MEDS: HYDROMORPHONE HCL/PF 2MG/ML CPJ IV PRN ×2 (12:54→19:22)
[2018-10-28] MEDS: DEXT 5%/0.45% NACL KCL 40MEQ/L 1,000 ML IV SCH ×2 (14:36→22:40)
[2018-10-28] MEDS: PIPERACILLIN/TAZ 2.25G PREMIX 50 ML IV SCH ×2 (14:36→22:40)
[2018-10-29] VITALS (15 sets, daily range): BP systolic 119–171; BP diastolic 74–108
[2018-10-29] MEDS: HYDROMORPHONE HCL/PF 2MG/ML CPJ IV PRN ×3 (05:45→21:00)
[2018-10-29] MEDS: PIPERACILLIN/TAZ 2.25G PREMIX 50 ML IV SCH ×3 (05:46→21:04)
[2018-10-29 07:06] LABS: HEMATOCRIT. 26.9 % (36.0-48.0); HEMOGLOBIN. 8.7 g/dL (12.0-16.0); MEAN CORPUSCULAR HEMOGLOBIN 25.8 pg (28.0-32.0); MEAN CORPUSCULAR VOLUME 79.2 fL (81.0-99.0); PLATELET 301 x1000/uL (130-400); RED BLOOD CELL COUNT 3.39 mill/uL (4.2-5.4); RED CELL DISTRIBUTION WIDTH 18.5 % (11.6-14.6)
[2018-10-29] MEDS: DEXT 5%/0.45% NACL KCL 40MEQ/L 1,000 ML IV SCH (08:26)
[2018-10-29] MEDS: FAMOTIDINE 20MG/2ML VIAL IV SCH (08:26)
[2018-10-29 10:44] LABS: PLATELET ESTIMATE NORMAL
[2018-10-30] VITALS (14 sets, daily range): BP systolic 125–198; BP diastolic 83–129
[2018-10-30] MEDS: DEXT 5%/0.45% NACL KCL 40MEQ/L 1,000 ML IV SCH ×2 (00:50→13:22)
[2018-10-30] MEDS: PIPERACILLIN/TAZ 2.25G PREMIX 50 ML IV SCH ×2 (07:33→13:21)
[2018-10-30] MEDS: FAMOTIDINE 20MG/2ML VIAL IV SCH (08:38)
[2018-10-30] MEDS: HYDROMORPHONE HCL/PF 2MG/ML CPJ IV PRN ×3 (08:39→19:58)
[2018-10-30] MEDS ORDERED: CLONIDINE 0.2MG TABLET PO PRN (19:15)
[2018-10-31] VITALS (7 sets, daily range): BP systolic 102–146; BP diastolic 72–92
[2018-10-31] MEDS: PIPERACILLIN/TAZ 2.25G PREMIX 50 ML IV SCH ×3 (01:22→13:02)
[2018-10-31] MEDS: DEXT 5%/0.45% NACL KCL 40MEQ/L 1,000 ML IV SCH ×2 (01:23→09:30)
[2018-10-31] MEDS: ONDANSETRON HCL 4MG/2ML INJ IV PRN ×3 (01:23→13:16)
[2018-10-31] MEDS: HYDROMORPHONE HCL/PF 2MG/ML CPJ IV PRN ×2 (06:13→11:57)
[2018-10-31] MEDS: FAMOTIDINE 20MG/2ML VIAL IV SCH (08:21)
[2018-10-31] MEDS ORDERED: LIDOCAINE HCL/EPINEPHRINE 1%-EPI 1:100,000 20 ML VIAL INFIL SCH (09:00)
[2018-10-31] MEDS ORDERED: LIDOCAINE HCL/EPINEPHRINE 1%-EPI 1:100,000 30 ML VIAL INFIL SCH (09:00)
[2018-10-31 09:02] LABS: BASOPHILS % 0.4 % (0.0-2.0); EOSINOPHILS % 1.2 % (0.0-5.0); HEMATOCRIT. 29.5 % (36.0-48.0); HEMOGLOBIN. 9.7 g/dL (12.0-16.0); LYMPHOCYTES % 9.9 % (20.0-50.0); MEAN CORPUSCULAR HEMOGLOBIN 26.2 pg (28.0-32.0); MEAN CORPUSCULAR VOLUME 79.3 fL (81.0-99.0); MEAN PLATELET VOLUME 7.5 fl (7.4-10.4); MONOCYTES % 3.6 % (2.0-8.0); NEUTROPHILS % 84.9 % (40.0-76.0); PLATELET 298 x1000/uL (130-400); RED BLOOD CELL COUNT 3.72 mill/uL (4.2-5.4); RED CELL DISTRIBUTION WIDTH 17.8 % (11.6-14.6)
[2018-10-31 09:12] LABS: CHLORIDE 105 mEq/L (98-107)
== END 2018-10-31 15:45 | disposition home or self-care (01) | DRG 282 ==
LOC: ER 23:30 → 5EST 10-28 03:10 → ENRESERV 10-28 07:38
PROVIDERS: ADMIT Internal Medicine; ATTEND Internal Medicine
DX: K85.90 Acute pancreatitis without necrosis or infection, unspecified (principal); N17.0 Acute kidney failure with tubular necrosis; E43 Unspecified severe protein-calorie malnutrition; K56.600 Partial intestinal obstruction, unspecified as to cause; C78.5 Secondary malignant neoplasm of large intestine and rectum; R65.10 Systemic inflammatory response syndrome (SIRS) of non-infectious origin without acute organ dysfunction; L02.211 Cutaneous abscess of abdominal wall; K56.7 Ileus, unspecified; E87.6 Hypokalemia; D64.9 Anemia, unspecified; Z85.038 Personal history of other malignant neoplasm of large intestine; Z93.3 Colostomy status; Z68.1 Body mass index [BMI] 19.9 or less, adult
CPT/HCPCS: 36415; 74177; 80048; 83605; 83735; 84100; 87070; 87186; 96361; 96365; 96375; 97116; 97162; 99291; A6261; J1170; J2060; J2270; J2405; J2543; J3490; J7030; J7620; Q9967

== ENCOUNTER 2019-01-04 06:43 | Inpatient (IN) | payer SELFPAY ==
[~2019-01-04] VITALS: Ht 152.4 cm; Wt 39.5 kg
[2019-01-04] MEDS ORDERED: SODIUM CHLORIDE 0.9% 1,000 ML IV ONE (07:36)
[2019-01-04] MEDS ORDERED: MORPHINE SULFATE 4 MG/ML CPJ (NOT FOR IM USE) IV STA (07:36)
[2019-01-04] MEDS ORDERED: ONDANSETRON HCL 4MG/2ML INJ IV STA (07:36)
[2019-01-04 08:13] LABS: HEMATOCRIT. 29.7 % (36.0-48.0); HEMOGLOBIN. 9.6 g/dL (12.0-16.0); MEAN CORPUSCULAR HEMOGLOBIN 24.9 pg (28.0-32.0); MEAN CORPUSCULAR VOLUME 76.8 fL (81.0-99.0); MEAN PLATELET VOLUME 7.8 fl (7.4-10.4); PLATELET 272 x1000/uL (130-400); RED BLOOD CELL COUNT 3.87 mill/uL (4.2-5.4); RED CELL DISTRIBUTION WIDTH 18.7 % (11.6-14.6)
[2019-01-04 08:21] LABS: CHLORIDE 94 mEq/L (98-107)
[2019-01-04 08:34] LABS: PLATELET ESTIMATE NORMAL
[2019-01-04] MEDS ORDERED: DEXTROSE 50% WATER 50ML SYRINGE IV ONE ×2 (08:38→08:45)
[2019-01-04 10:01] LABS: CLARITY URINE CLEAR (CLEAR); COLOR URINE YELLOW (YELLOW); KETONES URINE TRACE (NEGATIVE); LEUKOCYTE ESTERASE URINE 1+ (NEGATIVE); NITRITE URINE NEGATIVE (NEGATIVE); OCCULT BLOOD URINE NEGATIVE (NEGATIVE); PH URINE 7.5 (4.5-8.0); PROTEIN URINE 2+ (NEGATIVE); SPECIFIC GRAVITY URINE 1.019 (1.005-1.030)
[2019-01-04] MEDS ORDERED: DEXT 5%/LACTATED RINGERS 1,000 ML IV SCH (10:58)
[2019-01-04] MEDS ORDERED: LORAZEPAM 2MG/ML CPJ IV PRN (11:00)
[2019-01-04] MEDS ORDERED: ONDANSETRON HCL 4MG/2ML INJ IV PRN (11:00)
[2019-01-04] MEDS ORDERED: DIPHENHYDRAMINE 50MG/ML VIAL IV PRN (11:00)
[2019-01-04] MEDS ORDERED: ACETAMINOPHEN 650MG SUPP PR PRN (11:00)
[2019-01-04] MEDS ORDERED: IPRATROPIUM/ALBUTEROL 0.5-3(2.5)MG/3ML NEB INH PRN (11:00)
[2019-01-04] MEDS ORDERED: MORPHINE SULFATE 4 MG/ML CPJ (NOT FOR IM USE) IV ONE (11:00)
[2019-01-04] MEDS ORDERED: METOCLOPRAMIDE HCL 10MG/2ML VIAL IV ONE (11:00)
[2019-01-04 12:20] VITALS: BP 138/95
[2019-01-04 12:25] VITALS: BP 138/95
[2019-01-04] MEDS ORDERED: NITROGLYCERIN 0.4MG TABLET SL SL PRN (12:30)
[2019-01-04] MEDS: ENOXAPARIN 30MG/0.3ML SYR SUBCUT SCH ×2 (13:00→15:41)
[2019-01-04] MEDS: PANTOPRAZOLE SODIUM 40 MG/VIAL IV SCH (15:40)
[2019-01-04 16:00] VITALS: BP 147/91
[2019-01-04] MEDS: MORPHINE SULFATE 2 MG/ML CPJ (NOT FOR IM USE) IV PRN ×2 (17:50→22:26)
[2019-01-04] MEDS: PIPERACILLIN/TAZOBACTAM 2.25 G in DEXTROSE 5% WATER 50 ML IV SCH (18:55)
[2019-01-04 20:00] VITALS: BP 139/94
[2019-01-05] VITALS: BP 128/65
[2019-01-05 04:00] VITALS: BP 129/90
[2019-01-05] MEDS: MORPHINE SULFATE 2 MG/ML CPJ (NOT FOR IM USE) IV PRN ×2 (06:20→13:50)
[2019-01-05] MEDS: PIPERACILLIN/TAZOBACTAM 2.25 G in DEXTROSE 5% WATER 50 ML IV SCH (06:24)
[2019-01-05] MEDS: PANTOPRAZOLE SODIUM 40 MG/VIAL IV SCH (09:00)
[2019-01-05] MEDS: ENOXAPARIN 30MG/0.3ML SYR SUBCUT SCH (11:32)
[2019-01-05 12:00] VITALS: BP 156/105
[2019-01-05 13:50] VITALS: BP 156/105
== END 2019-01-05 17:15 | disposition left against medical advice (07) | DRG 247 ==
LOC: ER 06:43 → EDBEDREQ 07:39 → 6EST 11:11 → EDBEDREQ 11:14 → EDBEDREQSVC 11:14 → CANRESERV 11:21 → ENRESERV 11:21 → 6EST 01-05 03:21
PROVIDERS: ADMIT Internal Medicine; ATTEND Internal Medicine
PROC: 0D9670Z Drainage of Stomach with Drainage Device, Via Natural or Artificial Opening (ICD-10-PCS; principal; 2019-01-04)
DX: K56.609 Unspecified intestinal obstruction, unspecified as to partial versus complete obstruction (principal); E43 Unspecified severe protein-calorie malnutrition; N17.9 Acute kidney failure, unspecified; K85.90 Acute pancreatitis without necrosis or infection, unspecified; R64 Cachexia; E83.51 Hypocalcemia; E16.2 Hypoglycemia, unspecified; K43.9 Ventral hernia without obstruction or gangrene; N39.0 Urinary tract infection, site not specified; Z53.21 Procedure and treatment not carried out due to patient leaving prior to being seen by health care provider; Z85.038 Personal history of other malignant neoplasm of large intestine; Z93.3 Colostomy status; Z68.1 Body mass index [BMI] 19.9 or less, adult
CPT/HCPCS: 36415; 74018; 74176; 82962; 83036; 93005; 93970; 96374; 96375; 99285; C9113; J1650; J2270; J2405; J2543; J2765; J7030; J7060